=== PATIENT | male | born 1975 | race Asian ===

== ENCOUNTER → 2017-10-05 | Outpatient (CLI) | payer BC ==
[~2017-10-05] MED LIST: CLON-365 PO; METH10TA6 PO; MIRT15TA4 PO; OMNIPAQUE 350 MG/ML, 150 ML BOTTLE ONE; PROP10TA PO; ROSU5TAB PO
== END | disposition home or self-care (01) ==
LOC: EDSTATUS 12:30 → CFH 13:05
PROVIDERS: ATTEND Internal Medicine Endocrinology, Diabetes & Metabolism
DX: C73 Malignant neoplasm of thyroid gland (principal)
CPT/HCPCS: 70491; 71260; 82565; Q9967